=== PATIENT | female | born 1995 | race Caucasian/White ===

== ENCOUNTER 2018-10-25 08:28 | Inpatient (IN) ==
[2018-10-25] MEDS ORDERED: *HR* Nalbuphine 10 MG/ML AMPUL IVP PRN (10:26)
[2018-10-25] MEDS ORDERED: miSOPROStol 25 MCG TABLET PO PRN (10:26)
[2018-10-25] MEDS ORDERED: Metoclopramide 10 MG/2 ML VIAL IVP PRN (10:26)
[2018-10-25] MEDS ORDERED: Famotidine 20 MG/2 ML VIAL IVP PRN (10:26)
[2018-10-25] MEDS ORDERED: Naloxone 0.4 MG/ML INJ IVP PRN (10:26)
[2018-10-25] MEDS ORDERED: Ondansetron 4 MG/2 ML VIAL IVP PRN (10:26)
[2018-10-25 10:57] LABS: Basophils % 0.2 %; Eosinophils % 0.4 %; Hematocrit 38.4 % (35.3-44.9); Hemoglobin 12.6 g/dL (11.5-15.4); Immature Granulocytes % 0.7 % (0-4); Lymphocytes # 1.5 K/mcL (0.6-4.6); Lymphocytes % 14.8 %; Mean Corpuscular HGB Conc 32.8 g/dL (31.6-35.5); Mean Corpuscular Volume 82.2 fL (83.0-100.0); Mean Platelet Volume 13.6 fL (9.4-12.4); Monocytes # 0.6 K/mcL (0.0-1.3); Monocytes % 5.9 %; Neutrophils # 7.9 K/mcL (1.6-8.9); Platelet Count 178 K/mcL (140-400); Red Blood Count 4.67 M/mcL (3.82-4.97); Red Cell Distribution Width 14.2 % (11.5-14.5)
[2018-10-25 11:13] LABS: Amphetamine Screen,Urine Negative ng/mL (Cutoff=1000); Barbiturate Screen,Urine Negative ng/mL (Cutoff=200); Benzodiazepines Screen,Urine Negative ng/mL (Cutoff=200); Cannabinoid Screen,Urine Negative ng/mL (Cutoff = 50); Cocaine Screen,Urine Negative ng/mL (Cutoff= 300); Opiate Screen,Urine Negative ng/mL (Cutoff=300); Phencyclidine Screen,Urine Negative ng/mL (Cutoff=25)
--- NOTE | 2018-10-25 12:06 | OB/GYN History & Physical ---
Date of Encounter: 10/25/18 Time of Encounter: 11:21 Assessment and Plan (1) 39 weeks gestation of Current visit: Yes Status: Acute (2) Intact amniotic membranes during in third trimester Current visit: Yes Status: Acute (3) SGA (small for gestational age), , affecting care of mother, antepartum Current visit: Yes Status: Acute Admit to L&D for induction of labor Cytotec 50 g by mouth 1 Double Yip balloon with 60 mL per balloon Continuous electronic monitoring GBS negative Pain management plan is epidural-may have upon request Clear liquid diet Next status evaluation 4 hours post Cytotec Anticipate vaginal delivery Dr. Garcia is the OB on-call and is available as needed Qualifiers: Fetus number: single or unspecified fetus Qualified Code(s): O36.5990 - Maternal care for other known or suspected poor growth, unspecified trimester, not applicable or unspecified (4) Type A blood, Rh positive Current visit: Yes Status: Acute (5) NST (non-stress test) reactive Current visit: Yes Status: Acute History of Present Illness Chief complaint: IOL s/t SGA HPI: Ms. Pettit is a 23 year old female at 39 weeks 1 days gestation with an estimated date of of 10/31/18 dated by LMP. She presents from her office visit today with concern for SGA. Ultrasound today showed an EFW of 2632 g which is 7.6%. Her JACIEL is 18.74 cm. She endorses good movement and denies leakage of fluid, vaginal bleeding, contractions. She is followed by Dr. Thompson throughout her . records are available electronically and have been reviewed. Labs: A+ GBS- HIV- Hep B- T. Palladium- GC/CL- Rubella immune Varicella immune Past Med Surg Social Fam HX - Past Medical History Medical history: other Additional medical history: POTS - postural orthostatic tarchicardia, acid reflux Psychiatric history: no psych history - Past Surgical History Additional surgical history: left ankle, T/A - Social History Smoking Status: Never smoker Smokeless Tobacco Status: No Alcohol use: none Drug use: none - Family History Mother Adopted: [place]: Eufemia Alfredo Age: 54 Family Member Ethnicity: Non- Living Status: Still Living Hx Family Cardiac Disorders: No Hx Family Respiratory Disorders: No Hx Family Cancer: No Hx Family GI Disorders: No Hx Family Genitourinary Disorders: No Hx Family Endocrine Disorder: No Hx Family Musculoskeletal Disorders: No Hx Family Neuromuscular Disorders: No Hx Family Neurologic Disorders: No Hx Family HEENT Disorders: No Hx Family Autoimmune Disorders: No Hx Family Reproductive Disorders: No Hx Family Psychosocial Disorders: No Hx Family Medical Disorders: No Obstetrical History - Pregnancies : 1 Para: 0 Term: 0 : 0 Ab's: 0 Livin Medications and Allergies Albuterol Sulfate [Ventolin Hfa] 8 gm IH TID PRN 10/25/18 [History] Omeprazole Magnesium [Prilosec Otc] 40 mg PO DAILY 10/25/18 [History] Vit No.129/Iron/FA [ Tablet] 1 each PO DAILY 10/25/18 [History] Allergy/AdvReac Type Severity Reaction Status Date / Time naproxen Allergy Vomiting Verified 10/25/18 10:33 ekg leads Allergy Blister Uncoded 10/25/18 10:33 Review of System OB All systems PM: reviewed and no additional remarkable complaints except as stated Exam - Constitutional Constitutional: well developed, well nourished, no acute distress, morbidly obese - HEENT HEENT: PERRL, Normocephaly, Mucus Membranes Moist - Neck Neck exam: full ROM - Lungs Respiratory exam: CTAB - Cardiovascular Cardiovascular exam: RRR, +S1, +S2 - Breasts Breast: bilateral: normal - Abdomen Abdomen: Present: bowel sounds normal, gravid, non tender - Extremities Extremities exam: full ROM, normal capillary refill, normal inspection, radial pulses palpable and symmetrical - Vulva Vulva: bilateral: normal - Vagina Vagina: Present: normal moisture - Cervix Dilation: 3 Effacement: 90 Station: -3 - Uterus Uterus exam: Present: normal size, normal contour Results Result Diagrams: 10/25/18 10:20 Abnormal lab results MCV 82.2 fL (83.0-100.0) L 10/25/18 10:20 MCH 27.0 pg (28.0-33.3) L 10/25/18 10:20 MPV 13.6 fL (9.4-12.4) H 10/25/18 10:20 All other labs normal. - VTE Reasons for not Prescribing Prophylaxis: Treatment not Indicated - Low risk for VTE
[2018-10-25] MEDS ORDERED: Oxytocin 20 units/ LR 1000 mL 20 UNIT/1,000 ML BAG IVC SCH (15:00)
--- NOTE | 2018-10-25 15:01 | OB Labor Progress Note ---
Date of Encounter: 10/25/18 Time of Encounter: 14:59 Labor Progress Note - Subjective Subjective: Pt reports feeling contractions every 5-8 minutes and rates pain 7-8/10 - Cervix Cervix: Yip balloon remains in place - Heart Tones Heart Tones: Baseline 135 Moderate variability Accelerations present 15 x 15 No decelerations Fitch are category I - [place]: Patient reports contractions every 5-8 minutes and palpate mild. - Interventions Interventions: SVE - Plan Physician notified: No Plan: Continue induction management Start Pitocin and increased per protocol to adequate contraction pattern Consider AROM when Yip balloon out Frequent position changes Anticipate vaginal delivery
[2018-10-25] MEDS: Ringers Solution, Lactated 1,000 ML IVC SCH ×2 (15:45→19:07)
--- NOTE | 2018-10-25 18:28 | OB Labor Progress Note ---
Date of Encounter: 10/25/18 Time of Encounter: 18:25 Labor Progress Note - Subjective Subjective: Patient reports contractions are painful and rhythm at 6 out of 10 - Cervix Cervix: 7/80/-2 - Heart Tones Heart Tones: Baseline 140 Moderate variability Accelerations present 15 x 15 No decelerations FHR category I - [place]: Contractions every 3-4 minutes and palpate moderate - Interventions Interventions: SVE AROM - large amount of clear fluid IUPC placed - Plan Physician notified: No Plan: Continue induction management May have epidural upon request Frequent position changes with peanut ball Anticipate vaginal delivery
[2018-10-25] MEDS ORDERED: Epidural Premix (fent/bupiv) 110 ML EP SCH (18:45)
[2018-10-25] MEDS ORDERED: Epidural Premix (fent/bupiv) 110 ML EP ONE (18:53)
--- NOTE | 2018-10-25 20:20 | Anesthesia Evaluation PreOp ---
Date of Encounter: 10/25/18 Time of Encounter: 18:55 - Past History Planned Operation: ESTELLA Cardiac History: Denies any Significant Hx, Other (HO POTS NO ISSUES DURING ) Pulmonary History: Denies Any Significant HX CHRONOMETER ADJUSTER History: Denies Any Significant HX Other Medical History: Denies Any Significant HX Anesthesia History: No Prior Anesthetic Complications : Yes Test: Positive Alcohol Use: none Drug use: none Medications and Allergies Albuterol Sulfate [Ventolin Hfa] 8 gm IH TID PRN 10/25/18 [History] Omeprazole Magnesium [Prilosec Otc] 40 mg PO DAILY 10/25/18 [History] Vit No.129/Iron/FA [ Tablet] 1 each PO DAILY 10/25/18 [History] Allergy/AdvReac Type Severity Reaction Status Date / Time naproxen Allergy Vomiting Verified 10/25/18 10:33 ekg leads Allergy Blister Uncoded 10/25/18 10:33 - Meds/Allergy Pre-op Review Medications Reviewed: Yes Allergies Reviewed: No Beta Blockers on Current Med List: No Anesthesia Results - Labs 10/25/18 10:20 Anesthesia Exam - HEENT Pupil (Motor): Pupils equal Mallampati: II Teeth: Normal Oral Opening: Greater than 3 - CHRONOMETER ADJUSTER LOC: Oriented CHRONOMETER ADJUSTER Motor: Normal RUE, Normal LUE, Normal RLE, Normal LLE, Normal Face CHRONOMETER ADJUSTER Sensory: Normal: RUE, LUE, RLE, LLE, Face - Cardiac Rhythm: Regular Murmur: None JVD: No Carotid Bruit: No Anesthesia Assess/Plan ASA Score: 2 Level of consciousness: Cooperative Anesthetic Plan: Epidural
--- NOTE | 2018-10-25 20:23 | Anesthesia Procedures ---
Date of Encounter: 10/25/18 Time of Encounter: 18:55 Procedures: Anesthesia - Epidural/Spinal Patient ID/Chart reviewed: Yes Patient examined: Yes OB Eval: Gestational age: 39.1 OB Eval: : 1 OB Eval: Hx Para: 0 OB Eval: Dilated at (cm): 7 OB Eval: Contractions: Non-stressed pattern Consent Obtained: Yes Supplemental Oxygen: None/Room Air Site Prep: Aseptic Technique, Sterile prep and drape, Povidone-Iodine 1% Patient position: upright Amount of Local Anesthetic used: 3 Touhy Needle Gauge: 18 Touhy Needle Depth (cm): 6 Catheter Depth at Skin (cm): 8 Test Dose (1.5% Lido + Epi): Volume given (mls): 3 Test Dose Result: Negative Loading Dose Administered: Thru Catheter Infusion Rate (mls/hr): [address]: Tegaderm, Tape Interspace Used: L4-L5 Loss of Resistance (CHAVO): Yes Blood: No CSF: No Paresthesia: No Procedure: no anesthesia complications VSS FHTS
--- NOTE | 2018-10-26 04:31 | OB Labor Progress Note ---
Date of Encounter: 10/26/18 Time of Encounter: 04:17 Labor Progress Note - Subjective Subjective: Pt is not comfortable with epidural. Anesthesia recently bolused patient. - Cervix Cervix: 10/100/0 - Heart Tones Heart Tones: Baseline 150 Moderate variability Accelerations present 15x15 Few variable decelerations FHR Category I - [place]: Contractions every 2-4 minutes and palpate strong. - Interventions Interventions: Pushing on and off for 4 hours. Total pushing time is about 2 hours. No progress from 0 station. We have tried many different release maneuvers including [place], side-lying release and pushing in hands and knees. - Plan Physician notified: Yes Physician notified details: Dr. Garcia called to bedside to evaluate status. Plan: Continue induction management Peanut ball right side lying rest for 1 hour Will reassess ability to push at that time Anticipate vaginal delivery POC per consult with Dr. Garcia
--- NOTE | 2018-10-26 05:41 | OB Labor Progress Note ---
Date of Encounter: 10/26/18 Time of Encounter: 05:15 Labor Progress Note - Subjective Subjective: Patient reports increased comfort with contractions. - Cervix Cervix: 10/100/0 - Heart Tones Heart Tones: Baseline 165 Minimal to moderate variability No accelerations Variable and early decelerations FHR Category II - [place]: Contractions every 4+ minutes and palpate mild to moderate. IUPC present and MVU <200 - Interventions Interventions: Pitocin off x 30 minutes then restart at 10 - Plan Physician notified: Yes Physician notified details: Category II tracing and pitocin off Plan: Continue induction management Restart pitocin in 30 minutes at 10 Start pushing when contractions are adequate again Anticipate POC per consult with Dr. Garcia
[2018-10-26] MEDS ORDERED: Metoclopramide 10 MG/2 ML VIAL IVP ONE (06:21)
[2018-10-26] MEDS ORDERED: CeFAZolin Premix DUPLEX 2,000 MG/50 ML BAG IVPB ONE (06:21)
[2018-10-26] MEDS ORDERED: Famotidine 20 MG/2 ML VIAL IVP ONE (06:21)
--- NOTE | 2018-10-26 06:21 | OB Labor Progress Note ---
Date of Encounter: 10/26/18 Time of Encounter: 06:19 Labor Progress Note - Subjective Subjective: Pt comfortable with epidural. - Cervix Cervix: 10/100/0 - Heart Tones Heart Tones: Baseline 155 Moderate variability Accelerations present 15x15 Various decelerations present FHR Category II - [place]: IUPC with no activity - Interventions Interventions: Dr. Garcia to bedside to attempt turning baby from OP to OA - Plan Physician notified: Yes Physician notified details: Dr. Garcia notified of continued category II tracing Plan: Dr. Garcia was unable to manually rotate baby from OP to OA Decision made between patient and Dr. Garcia to proceed to OR for PLTCS for failure to descend Care turned over to Dr. Garcia at this time
[2018-10-26] MEDS ORDERED: Azithromycin 500 MG in D5% in Water 250 ML IVPB STA (06:36)
[2018-10-26] MEDS ORDERED: *HR* Nalbuphine 10 MG/ML AMPUL IV PRN (06:44)
[2018-10-26] MEDS ORDERED: *HR* Promethazine 25 MG/ML VIAL IVP PRN (06:44)
[2018-10-26] MEDS ORDERED: *HR* Meperidine 25 MG/ML SYRINGE IVP PRN (06:44)
[2018-10-26] MEDS ORDERED: Acetaminophen IV 1,000 MG/100 ML INFUS..BTL IVPB ONE (06:44)
[2018-10-26] MEDS ORDERED: *HR* HYDROmorphone (PF) 1 MG/ML SYRINGE IVP PRN (06:44)
[2018-10-26] MEDS ORDERED: Ondansetron 4 MG/2 ML VIAL IVP ONE (06:44)
[2018-10-26] MEDS ORDERED: *HR* OxyCODONE Immed Rel 5 MG TABLET PO PRN (06:44)
[2018-10-26] MEDS ORDERED: Ringers Solution, Lactated 1,000 ML ONE ×2 (06:45→08:15)
[2018-10-26] MEDS ORDERED: *HR* Oxytocin 10 UNIT/ML VIAL IM ONE ×3 (06:45→08:43)
[2018-10-26] MEDS ORDERED: EPHEDrine 50 MG/ML VIAL ONE (06:57)
[2018-10-26] MEDS ORDERED: *HR* Phenylephrine 10 MG/ML VIAL ONE (06:59)
[2018-10-26] MEDS ORDERED: Ondansetron 4 MG/2 ML VIAL ONE (07:17)
[2018-10-26] MEDS ORDERED: *HR* Morphine Sulfate/PF 10 MG/10 ML AMPUL ONE (07:18)
[2018-10-26] MEDS ORDERED: Chloroprocaine/PF 20 ML VIAL INFILT ONE (07:42)
[2018-10-26] MEDS ORDERED: Ketorolac 30 MG/ML VIAL ONE (08:43)
--- NOTE | 2018-10-26 09:19 | OB/GYN Procedure Note ---
Section - Date of procedure: 10/26/18 Preop diagnosis: other (1. Failure to progress 2. IUP at 39.2 WGA) Post-op diagnosis: same Procedure: section, primary low transverse Surgeon: Anila Mae Blood Loss: 800 Was there an boilermaker's assistant present: Yes X Ray Consultant: Katelin Palmer (Dee Manjarrez DO, PGY 1) Anesthesiologist: Estuardo Cifuentes Anesthesia Type: Epidural (With Duramorph bolus) section complications: none Disposition: L&D Recovery Room Specimens: Placenta, Cord blood, Cord gasses - (s) A Delivery Date: 10/26/18 Delivery Time: 07:26 Presentation: vertex Position: OP Route of delivery: other ( section) Gender: Female Viability: Viable Pounds: 6 Ounces: 11 Gram Weight: 3040 kg at 1 minute: 6 at 5 minutes: 9 Shoulder Dystocia: not encountered Specimens collected: cord blood, venous cord gases, arterial cord gases Placenta: partial extraction - Narrative Narrative: Operation Performed Primary Low Transverse Section Indication for Surgery 23yo at 39.2 wga presented for induction of labor at 39.1 wga. An in office ultrasound, performed for size greater than dates, showed an EFW of 7%. She progressed to complete with the assistance of oxytocin. The head was in persistent OP presentation despite varied maneuvers. I was called in to evaluate for a vacuum extraction and the head was found to be at 0 station without adequate descent with good maternal effort. She was allowed to rest and change position. At approximately 6 AM I attempted a manual rotation and failed to rotate the head to OA position. The decision was made to proceed with a section at that time for failure to progress. The patient was informed of the risks and benefits of a section. Risks included but were not limited to bleeding, infection, injury to the presenting part of the fetus, injury to the bladder, bowel, ureters and the surrounding neurovasular bundles. The patient expressed understanding of the risks involved. All questions were answered and the patient consented to the procedure. Preoperative Diagnosis 1. IUP @ 39.2 wga 2. Failure to progress Postoperative Diagnosis Same Surgeon Anila Garcia D.O. X Ray Consultant(s) Sanford Ashraf D.O., PGY 1 Anesthesia Epidural with Duramorph Estimated Blood Loss 800 mL Urine Output 500 mL of clear yellow urine IV Fluids 1700 mL crystalloid Specimen(s) Placenta, Cord gasses, Cord blood Findings Live female infant, weighing 6 pounds and 11 ounces, with APGARS of 6/9 (2 off for color, 1 off for tone, 1 off for respiration/1 off for color). Normal appearing uterus, tubes and ovaries bilaterally. Complications None Technique The patient was taken to the operating room where a timeout was performed to confirm correct patient and correct procedure. Preoperative antibiotics were administered and spinal anesthesia was found to be adequate. The patient was prepped and draped in the usual sterile fashion for a section, in supine position with a leftward tilt of the hips. A Pfannenstiel skin incision was made with a scalpel. Dissection to the fascia was carried out using blunt and sharp dissection, followed by the Bovie electrocautery for hemostasis. The fascia was incised with a scalpel and the incision was extended laterally using curved Diana scissors. [place] clamps were used to tent up the superior edge of the fascia and the underlying rectus muscles were dissected off using blunt and sharp dissection. Attention was then turned to the inferior fascial edge and dissection carried out in a similar manner. The rectus muscles were then in the midline and the peritoneum was entered using blunt and sharp dissection. The peritoneum was grasped with hemostats at the superior aspect, care was taken to avoid the bladder, and incised with Metzenbaum scissors. The peritoneal incision was extended using light traction. A bladder blade was inserted, the vesicoperitoneal reflection was identified, and a bladder flap was created using Metzenbaum scissors and blunt dissection. The bladder blade was then replaced to protect the bladder. The lower uterine segment was incised with a scalpel in transverse fashion. The hysterotomy was extended laterally with blunt traction in cephalad and caudad directions, followed by the bandage scissors bilaterally. The fetus was in vertex presentation, OP position. The surgeon's hand was placed under the infant's head, with the assistance of the RN pushing from below to elevate the head. Dr. Palmer was called to assist with delivery of the head. The hysterotomy was extended 2 cm cephalad in the midline to facilitate delivery of the head and the delivered through the hysterotomy with the assistance of fundal pressure. The cord was clamped 2 and cut. The was safely transferred to the warmer for further care by the cam maker. Cord blood and gases were obtained for routine testing. The placenta, with three-vessel cord, was manually extracted intact. The uterus was wiped clean of clots and debris before closing the hysterotomy with a running locked 0 Vicryl suture. A separate 0 Vicryl suture was used to close the 2 cm vertical midline extension of the T-incision. A second imbricating layer of the same suture was placed for hemostasis. Non-hemostatic areas were reinforced with 0 Vicryl suture. Excellent hemostasis obtained. The fascia was closed using Stratafix suture in a running nonlocked fashion. The subcutaneous tissue was closed with 3-0 plain suture in a running nonlocked fashion. The skin was closed with a subcuticular stitch of 4-0 Vicryl. A [place] dressing was placed. The patient tolerated the procedure well. At the end of the procedure, all needle sponge and instrument counts were noted to be correct 2. The patient tolerated the procedure well and was transferred to the recovery room in stable condition.
[2018-10-26] MEDS ORDERED: Sennosides 8.6 MG TABLET PO PRN (11:37)
[2018-10-26] MEDS ORDERED: Ondansetron 4 MG/2 ML VIAL IVP PRN (11:37)
[2018-10-26] MEDS ORDERED: Rho Immune Globulin 1,500 UNIT SYRINGE IM ONE (11:37)
[2018-10-26] MEDS ORDERED: Oxytocin 20 units/ LR 1000 mL 20 UNIT/1,000 ML BAG IVC SCH (11:37)
[2018-10-26] MEDS ORDERED: Metoclopramide 10 MG/2 ML VIAL IVP PRN (11:37)
[2018-10-26] MEDS ORDERED: *HR* OxyCODONE/APAP 5/325 TABLET PO PRN (11:37)
[2018-10-26] MEDS ORDERED: Measles/Mumps/Rubella Vacc 0.5 ML VIAL SQ ONE (11:37)
[2018-10-26] MEDS ORDERED: Simethicone 80 MG TAB.CHEW PO PRN (11:37)
[2018-10-26] MEDS ORDERED: Acetaminophen 325 MG TABLET PO SCH (12:00)
[2018-10-26] MEDS ORDERED: Ketorolac 30 MG/ML VIAL IVP SCH (14:30)
[2018-10-26] MEDS: Ibuprofen 600 MG TABLET PO SCH ×2 (15:43→21:47)
[2018-10-26] MEDS ORDERED: Furosemide 20 MG TABLET PO ONE ×2 (18:00→18:15)
[2018-10-26] MEDS: Acetaminophen 325 MG TABLET PO SCH (19:50)
[2018-10-27] MEDS: Acetaminophen 325 MG TABLET PO SCH ×4 (02:19→21:51)
[2018-10-27 03:26] LABS: Basophils % 0.2 %; Eosinophils % 0.2 %; Hematocrit 31.6 % (35.3-44.9); Immature Granulocytes % 0.6 % (0-4); Lymphocytes # 1.5 K/mcL (0.6-4.6); Lymphocytes % 11.7 %; Mean Corpuscular HGB Conc 33.5 g/dL (31.6-35.5); Mean Corpuscular Hemoglobin 27.3 pg (28.0-33.3); Mean Corpuscular Volume 81.4 fL (83.0-100.0); Mean Platelet Volume 13.8 fL (9.4-12.4); Monocytes % 7.8 %; Neutrophils # 9.9 K/mcL (1.6-8.9); Platelet Count 128 K/mcL (140-400); Red Blood Count 3.88 M/mcL (3.82-4.97); Red Cell Distribution Width 14.3 % (11.5-14.5); Segmented Neutrophils % 79.5 %
[2018-10-27 03:29] LABS: Hemoglobin 10.6 g/dL (11.5-15.4)
[2018-10-27] MEDS: Ibuprofen 600 MG TABLET PO SCH ×3 (03:53→18:23)
--- NOTE | 2018-10-27 07:28 | Anesthesia Evaluation Post Op ---
Date of Encounter: 10/27/18 Time of Encounter: 07:27 - Vital Signs Vital Signs: Vital Signs/O2 Sat, Most Current Temp Pulse Resp BP Pulse Ox 97.9 F 80 16 120/81 95 10/27/18 04:00 10/27/18 04:00 10/27/18 04:00 10/27/18 04:00 10/27/18 04:00 - Lungs Lungs: Clear Ascult./Percussion - Airway Airway: Non-obstructed - Cardiovascular Regular Rate - Mental Status Mental Status: Alert & Oriented, Answers Appropriately - Pain Pain Scale: 5 - Nausea Vomiting Nausea Vomiting: Not Present - Hydration Hydration: Tolerates oral liquids
[2018-10-27] MEDS: Prenatal Vit/FA 1 EACH TABLET PO SCH (08:26)
--- NOTE | 2018-10-27 09:07 | OB/GYN Progress Note ---
Date of Encounter: 10/27/18 Time of Encounter: 09:05 - Assessment and Plan (1) Status post primary low transverse section Current Visit: Yes Status: Acute POD #1 Meeting day 1 milestones Pain well controlled with prescribed medications Bleeding normal, passed a large clot this morning when going to the bathroom (only visualized by patient) Will continue to monitor for additional clots Tolerating diet, good UOP s/p lasix yestereday, passing gas but no BM yet Ambulating well . Baby in nursery dt hypoglycemia. (2) anemia Current Visit: Yes Status: Acute Hgb 12.6 on adm, 10.6 today On Methergine No signs of increased bleeding, denies SOB, CP, lightheadedness Will repeat CBC tomorrow AM Continue daily iron supplementation Subjective - Subjective Principal diagnosis: s/p Patient reports: appetite normal, voiding normally, pain well controlled : nursing well (hypoglycemia) Objective - Vital Signs Latest vital signs: Vital Signs Temp Pulse Resp BP Pulse Ox 10/27/18 04:00 97.9 F 80 16 120/81 95 10/26/18 23:16 98.0 F 81 16 129/85 95 10/26/18 19:48 98.1 F 83 15 125/85 94 10/26/18 17:25 97.8 F 83 14 115/74 95 10/26/18 14:30 98.4 F 77 18 128/83 95 10/26/18 13:27 97.6 F 74 18 129/84 96 10/26/18 12:30 98.1 F 74 12 119/66 95 10/26/18 12:00 98.7 F 76 18 124/82 96 10/26/18 11:30 98.3 F 80 16 130/86 96 Intake and Output 10/26/18 10/27/18 10/27/18 23:59 07:59 15:59 Intake Total 900 / 1050 450 / 450 Output Total 650 / 1250 1300 / 1300 Balance 250 / -200 -850 / -850 Intake: Oral 900 / 900 450 / 450 Output: Catheter 650 / 650 1300 / 1300 Other: # Voids 1 Weight 107.955 kg Patient Weight 10/27/18 23:59 Weight 107.955 kg - Exam Lungs: bilateral: normal Chest: Normal S1, Normal S2 Extremities: Present: normal, edema (pedal edema improving) Abdomen: Present: normal appearance, soft, tenderness (mild, with palpation of the uterus) Incision: Present: dry, intact Uterus: Present: firm Fundal Height: 1 (1 below umbilicus) - Labs Labs: Laboratory Results - last 24 hr 10/27/18 02:53 WBC 12.5 H RBC 3.88 Hgb 10.6 L D Hct 31.6 L MCV 81.4 L MCH 27.3 L MCHC 33.5 RDW 14.3 Plt Count 128 L MPV 13.8 H Immature Gran % 0.6 Seg Neutrophils % 79.5 Lymphocytes % 11.7 Monocytes % 7.8 Eosinophils % 0.2 Basophils % 0.2 Neutrophils # 9.9 H Lymphocytes # 1.5 Monocytes # 1.0 Eosinophils # 0.0 Basophils # 0.0
[2018-10-28 05:09] LABS: Hematocrit 32.4 % (35.3-44.9); Hemoglobin 10.4 g/dL (11.5-15.4); Mean Corpuscular HGB Conc 32.1 g/dL (31.6-35.5); Mean Corpuscular Hemoglobin 26.8 pg (28.0-33.3); Mean Corpuscular Volume 83.5 fL (83.0-100.0); Mean Platelet Volume 12.9 fL (9.4-12.4); Platelet Count 140 K/mcL (140-400); Red Blood Count 3.88 M/mcL (3.82-4.97); Red Cell Distribution Width 14.6 % (11.5-14.5)
[2018-10-28] MEDS: Ibuprofen 600 MG TABLET PO SCH ×2 (06:45→15:53)
[2018-10-28] MEDS: Acetaminophen 325 MG TABLET PO SCH ×2 (08:25→20:48)
[2018-10-28] MEDS: Prenatal Vit/FA 1 EACH TABLET PO SCH (08:25)
--- NOTE | 2018-10-28 11:32 | OB/GYN Progress Note ---
Date of Encounter: 10/28/18 Time of Encounter: 11:28 - Assessment and Plan (1) Status post primary low transverse section Current Visit: Yes Status: Acute POD 2 s/p primary c/s recovering well and anticipate discharge tomorrow but awaiting return of normal bowel function - meeting day 2 milestones - continue to ambulate - pain well controlled with out use of prn opioids (2) anemia Current Visit: Yes Status: Acute HgB 10.4 from 10.6 stable but down from baseline at 12.6 likely etiology post c/s blood loss. Remains asymptomatic - methergine discontinued yesterday - continue iron supplement on discharge - repeat Hgb in am (3) Breast feeding status of mother Current Visit: Yes Status: Acute Breasting feeding well - consult PRN - provide script today Subjective - Subjective Principal diagnosis: s/p c/s Interval history: 23 y/o F POD for primary c/s due to failure to progress at 39 weeks. She reports recovering well but little appetite but denies vomiting or nausea. She reports flatus but no BM as of yet. Her bleeding has decreased to smal clots have one large clot yesterday. Breast feeding going well now that baby returned to room but needs breast pump fro home. She reports cough same as before admitted with seasonal allergies - denies chest pain, palpitations, shortness of breath or wheeze. Reports pedal edema improved. She is concerned that flor device vibrates intermittently Patient reports: voiding normally, pain well controlled, ambulating normally, no nauseated : in NICU (just returned from [facility]), nursing well Objective - Vital Signs Latest vital signs: Vital Signs Temp Pulse Resp BP Pulse Ox 10/28/18 08:13 97.9 F 76 16 118/75 10/27/18 20:41 98.0 F 80 16 118/71 98 Intake and Output 10/27/18 10/28/18 10/28/18 23:59 07:59 15:59 Intake Total 100 / 550 Output Total 1100 / 1100 Balance 100 / -1500 -1100 / -1100 Intake: Oral 100 / 550 Output: Urine 1100 / 1100 Other: Weight 107.411 kg Patient Weight 10/28/18 23:59 Weight 107.411 kg - Exam Lungs: bilateral: normal Chest: Normal S1, Normal S2 Extremities: Present: edema (pitting +2 bilateral up to calf). Absent: tenderness Incision: Present: normal, dry, dressed (FLOR in place) Uterus: Present: normal, firm Fundal Height: 2 (2 below U) - Labs Labs: Laboratory Results - last 24 hr 10/28/18 04:38 WBC 10.2 RBC 3.88 Hgb 10.4 L Hct 32.4 L MCV 83.5 MCH 26.8 L MCHC 32.1 RDW 14.6 H Plt Count 140 MPV 12.9 H
[2018-10-29] MEDS: Acetaminophen 325 MG TABLET PO SCH (04:04)
[2018-10-29] MEDS: Ibuprofen 600 MG TABLET PO SCH (04:05)
[2018-10-29 08:12] LABS: Basophils % 0.4 %; Eosinophils # 0.2 K/mcL (0.0-0.6); Eosinophils % 2.9 %; Hematocrit 29.3 % (35.3-44.9); Hemoglobin 9.4 g/dL (11.5-15.4); Immature Granulocytes % 0.9 % (0-4); Lymphocytes # 1.6 K/mcL (0.6-4.6); Lymphocytes % 19.8 %; Mean Corpuscular HGB Conc 32.1 g/dL (31.6-35.5); Mean Corpuscular Hemoglobin 27.1 pg (28.0-33.3); Mean Corpuscular Volume 84.4 fL (83.0-100.0); Mean Platelet Volume 12.5 fL (9.4-12.4); Monocytes # 0.7 K/mcL (0.0-1.3); Monocytes % 8.2 %; Neutrophils # 5.6 K/mcL (1.6-8.9); Platelet Count 186 K/mcL (140-400); Red Blood Count 3.47 M/mcL (3.82-4.97); Red Cell Distribution Width 14.7 % (11.5-14.5); Segmented Neutrophils % 67.8 %
[2018-10-29 08:19] VITALS: BP 127/75
[2018-10-29] MEDS: Prenatal Vit/FA 1 EACH TABLET PO SCH ×2 (08:26→08:27)
--- NOTE | 2018-10-29 11:01 | Discharge Summary ---
Date of Encounter: 10/29/18 Time of Encounter: 11:00 - Discharge Diagnosis (1) Breast feeding status of mother Priority: Secondary Status: Acute (2) Status post primary low transverse section Priority: Primary Status: Acute Comments: Pt meeting all post-op milestones. She reports good mood. No complaints. - Discharge Medications Prescriptions: New Docusate [Colace] 100 mg PO BID #60 capsule Ferrous Sulfate 325 mg PO DAILY #30 tablet. Ibuprofen [Ibu] 600 mg PO Q8HR #60 tablet OxyCODONE/APAP 5/325 [Percocet 5/325 MG] 1 each PO Q8HR PRN 3 Days #15 tablet PRN Reason: Pain Breast Pump [BREAST PUMP] 1 each .ROUTE AD #1 each No Action Omeprazole Magnesium [Prilosec Otc] 40 mg PO DAILY Vit No.129/Iron/FA [ Tablet] 1 each PO DAILY Albuterol Sulfate [Ventolin Hfa] 8 gm IH TID PRN PRN Reason: Cough Home Medications: Albuterol Sulfate [Ventolin Hfa] 8 gm IH TID PRN 10/25/18 [History] Omeprazole Magnesium [Prilosec Otc] 40 mg PO DAILY 10/25/18 [History] Vit No.129/Iron/FA [ Tablet] 1 each PO DAILY 10/25/18 [History] Breast Pump [BREAST PUMP] 1 each .ROUTE AD #1 each 10/28/18 [Rx] Docusate [Colace] 100 mg PO BID #60 capsule 10/28/18 [Rx] Ferrous Sulfate 325 mg PO DAILY #30 tablet. 10/28/18 [Rx] Ibuprofen [Ibu] 600 mg PO Q8HR #60 tablet 10/28/18 [Rx] OxyCODONE/APAP 5/325 [Percocet 5/325 MG] 1 each PO Q8HR PRN 3 Days #15 tablet 10/28/18 [Rx] Allergies/Adverse Reactions: Allergy/AdvReac Type Severity Reaction Status Date / Time naproxen Allergy Vomiting Verified 10/25/18 10:33 ekg leads Allergy Blister Uncoded 10/25/18 10:33 Data Procedures and tests throughout hospitalization: Laboratory Tests 10/25/18 10/25/18 10/27/18 10:20 10:20 02:53 WBC 10.2 12.5 H RBC 4.67 3.88 Hgb 12.6 10.6 L D Hct 38.4 31.6 L MCV 82.2 L 81.4 L MCH 27.0 L 27.3 L MCHC 32.8 33.5 RDW 14.2 14.3 Plt Count 178 128 L MPV 13.6 H 13.8 H Immature Gran % 0.7 0.6 Seg Neutrophils % 78.0 79.5 Lymphocytes % 14.8 11.7 Monocytes % 5.9 7.8 Eosinophils % 0.4 0.2 Basophils % 0.2 0.2 Neutrophils # 7.9 9.9 H Lymphocytes # 1.5 1.5 Monocytes # 0.6 1.0 Eosinophils # 0.0 0.0 Basophils # 0.0 0.0 Urine Opiates Screen Negative Ur Barbiturates Screen Negative Ur Phencyclidine Scrn Negative Ur Amphetamines Screen Negative U Benzodiazepines Scrn Negative Urine Cocaine Screen Negative U Marijuana (THC) Screen Negative Ur Drug Screen Interp See Below 10/28/18 10/29/18 04:38 07:46 WBC 10.2 8.2 RBC 3.88 3.47 L Hgb 10.4 L 9.4 L Hct 32.4 L 29.3 L MCV 83.5 84.4 MCH 26.8 L 27.1 L MCHC 32.1 32.1 RDW 14.6 H 14.7 H Plt Count 140 186 MPV 12.9 H 12.5 H Immature Gran % 0.9 Seg Neutrophils % 67.8 Lymphocytes % 19.8 Monocytes % 8.2 Eosinophils % 2.9 Basophils % 0.4 Neutrophils # 5.6 Lymphocytes # 1.6 Monocytes # 0.7 Eosinophils # 0.2 Basophils # 0.0 Urine Opiates Screen Ur Barbiturates Screen Ur Phencyclidine Scrn Ur Amphetamines Screen U Benzodiazepines Scrn Urine Cocaine Screen U Marijuana (THC) Screen Ur Drug Screen Interp Labs on day of discharge: Labs from last 24 hours 10/29/18 07:46 WBC 8.2 RBC 3.47 L Hgb 9.4 L Hct 29.3 L MCV 84.4 MCH 27.1 L MCHC 32.1 RDW 14.7 H Plt Count 186 MPV 12.5 H Immature Gran % 0.9 Seg Neutrophils % 67.8 Lymphocytes % 19.8 Monocytes % 8.2 Eosinophils % 2.9 Basophils % 0.4 Neutrophils # 5.6 Lymphocytes # 1.6 Monocytes # 0.7 Eosinophils # 0.2 Basophils # 0.0 Date of admission: 10/25/18 08:28 Primary care physician: Mariaa Ackerman CNP Discharging clinician: Leyda Wayne Anticipated date of discharge: 10/29/18 - Patient Status Disposition: Home, Self-Care Condition: Good Functional capacity at discharge: independent ambulation Overall status at discharge: patient is progressing back to baseline - Discharge Instructions Follow Up With: Mariaa Ackerman CNP [Primary Care Provider] - Anila Garcia [Partnered Physician] - - Diet and Activity Activity: increase activity as tolerated Diet: regular diet Hospital Course Reason for admission: induction of labor Delivery: section Other procedures: none complications: none Discharge diagnosis: IUP at term delivered baby: female Hospital course: - Date of procedure: 10/26/18 Preop diagnosis: other (1. Failure to progress 2. IUP at 39.2 WGA) Post-op diagnosis: same Procedure: section, primary low transverse Surgeon: Anila Garcia Quantitated Blood Loss: 800 Was there an marketing administrative assistant present: Yes Apparel Stock Checker: Katelin Palmer (Dee Manjarrez DO, PGY 1) Anesthesiologist: Estuardo Cifuentes Anesthesia Type: Epidural (With Duramorph bolus) section complications: none Disposition: L&D Recovery Room Specimens: Placenta, Cord blood, Cord gasses - Infant (s) A Infant Delivery Date: 10/26/18 Delivery Time: 07:26 Presentation: vertex Position: OP Route of delivery: other ( section) Gender: Female Viability: Viable Pounds: 6 Ounces: 11 Gram Weight: 3040 kg at 1 minute: 6 at 5 minutes: 9 Shoulder Dystocia: not encountered Specimens collected: cord blood, venous cord gases, arterial cord gases Placenta: partial extraction Time Attestation: Total time spent providing and/or coordinating discharge services: Time Spent: Less than 30 minutes - VTE Reasons for not Prescribing Prophylaxis: Treatment not Indicated - Low risk for VTE Documentation of Mechanical Device: Intermittent pneumatic compression device Exam - Constitutional Vitals: Temp Pulse Resp BP Pulse Ox 97.9 F 84 16 127/75 97 10/29/18 08:18 10/29/18 08:18 10/29/18 08:18 10/29/18 08:18 10/28/18 19:55 General appearance IM: A&O X 3 - Respiratory Respiratory exam: Present: CTAB - Cardiovascular Cardiovascular exam IM: Present: RRR, +S1, +S2 - GI/Abdominal GI/Abdominal exam IM: soft, no peritoneal signs Incision: dressed (FLOR dry and intact) - Uterine Tone: Firm Uterus Position: 1 Finger Below Umbilicus - Extremities Exam Extremities exam IM: Present: pedal edema (2+ bilaterally, no erythema or warmth) - Neurological Exam Neurological exam: normal gait, oriented X3
== END 2018-10-29 11:24 | disposition home or self-care (01) | DRG 788 ==
LOC: 1NENULAB → OBSVTOIN 08:28 → 1NENULAB 19:31 → 1NENUOBS 10-26 10:08
PROVIDERS: ADMIT Advanced Practice Midwife; ATTEND Advanced Practice Midwife